=== PATIENT | female | born 1965 | race Caucasian/White ===

== ENCOUNTER 2017-10-31 16:27 | Emergency (ER) | payer OTHER ==
[~2017-10-31 16:27] MED LIST: ANTIDEPRESSANT; INHALER
== END 2017-10-31 17:02 | disposition left against medical advice (07) ==
LOC: EMS 16:29
DX: G89.18 Other acute postprocedural pain (principal); Z53.21 Procedure and treatment not carried out due to patient leaving prior to being seen by health care provider